=== PATIENT | male | born 1950 | race Caucasian/White ===

== ENCOUNTER → 2019-12-01 08:44 | Outpatient (CLI) | payer MEDICARE, OTHER, SELFPAY ==
--- NOTE | 2019-12-01 | DI.RAD.S_ITS ---
PROCEDURE: XR SHOULDER LT MIN 2V INDICATIONS: SHOULDER LEFT PAIN TECHNIQUE: 3 views of the shoulder were acquired. COMPARISON: None. FINDINGS: Bones: No fractures or dislocations there is moderate osteoarthritic change at the a.c. joint, left shoulder. No suspicious bony lesions. Visualized ribs appear intact. Soft tissues: No suspicious soft tissue calcifications. IMPRESSION: Moderate a.c. joint osteoarthritis. No trauma found. Dictated by: Jason Monaco M.D. on 12/01/2019 at 9:30 Approved by: Jason Monaco M.D. on 12/01/2019 at 9:31
[2019-12-01 10:39] LABS: Add Manual Diff / Slide Review NO; Basophils Absolute Auto 100 /uL (0-100); Eosinophils Absolute Auto 200 /uL (0-450); Eosinophils Percent Auto 2.7 % (2-4); Hematocrit 50.3 % (41-53); Hemoglobin 16.8 g/dL (13.5-17.5); Lymphocytes Absolute Auto 2200 /uL (1100-4500); Lymphocytes Percent Auto 31.9 % (25-40); Mean Corpuscular HGB Conc 33.3 % (30-36); Mean Corpuscular Hemoglobin 29.8 PG (26-34); Mean Corpuscular Volume 89.5 fL (80-100); Monocytes Absolute Auto 600 /uL (0-900); Monocytes Percent Auto 8.9 % (3-14); Neutrophils Absolute Auto 3800 /uL (1500-7000); Neutrophils Percent Auto 55.5 % (50-75); Platelet Count 237 X10^3/uL (150-400); Red Blood Cell Count 5.62 X10^6/uL (4.5-5.9); Red Cell Distribution Width 14.9 % (11.6-14.8); White Blood Cell Count 6.8 X10^3/uL (4.5-11.0)
[2019-12-01 11:04] LABS: Alanine Aminotransferase 27 IU/L (<50); Albumin 4.6 g/dL (3.5-5.0); Albumin Globulin Ratio 1.4 (1.0-2.8); Alkaline Phosphatase 79 U/L (38-126); Aspartate Aminotransferase 32 IU/L (17-59); BUN Creatinine Ratio 17.8 (6-22); Bilirubin Total 0.7 mg/dL (0.2-1.3); Bilirubin Unconjugated 0.7 mg/dL (0.0-1.1); Blood Urea Nitrogen 19 mg/dL (9-20); Calcium 9.5 mg/dL (8.4-10.2); Carbon Dioxide 29 mmol/L (22-32); Chloride 102 mmol/L (98-107); Cholesterol 139 mg/dL (140-199); Estimated Glomerular Filt Rate > 60.0 mL/min (>60); Globulin 3.3 g/dL (1.7-4.1); Glucose 89 mg/dL (80-110); HDL Cholesterol 34 mg/dL (40-60); HEMOLYSIS < 15 (0-50); LDL Cholesterol Calculated 66 mg/dL (<100); Potassium 4.2 mmol/L (3.4-5.1); Sodium 140 mmol/L (137-145); Total Protein 7.9 g/dL (6.3-8.2); Triglycerides 193 mg/dL (35-150); Uric Acid 6.1 mg/dL (3.5-8.5)
[2019-12-01 11:32] LABS: Prostate Specific Antigen 0.744 ng/mL (0.10-4.00)
[2019-12-01 11:33] LABS: TSH w/ Reflex to FT4 1.33 uIU/mL (0.47-4.68)
== END ==
PROVIDERS: Referring Provider Internal Medicine; Visit Provider Internal Medicine
DX: M10.9 Gout, unspecified (principal); I10 Essential (primary) hypertension; C61 Malignant neoplasm of prostate; E78.2 Mixed hyperlipidemia; M25.519 Pain in unspecified shoulder
CPT/HCPCS: 36415; 73030; 80048; 80061; 80076; 84153; 84443; 84550; 85025

== ENCOUNTER → 2020-01-10 11:25 | Outpatient (CLI) | payer MEDICARE, OTHER, SELFPAY ==
[2020-01-11 08:49] LABS: COVID19 Sendout NOT DETECTED (Not Detect)
== END ==
PROVIDERS: Visit Provider Physician Assistant
DX: Z01.818 Encounter for other preprocedural examination (principal)
CPT/HCPCS: 87635

== ENCOUNTER 2020-01-13 11:46 | Day surgery (SDC) | payer MEDICARE, OTHER, SELFPAY ==
--- NOTE | 2020-01-13 | PATH_ITS ---
[facility] Accession Number: [id number] . 01 Material submitted: . PART A: colon - IC VALVE PART B: colon - ASCENDING COLON BIOPSY . 01 Clinical history: . SCREENING COLONOSCOPY W/POSS BX A-B: R/O COLITIS VERSUS ADENOMA . 01 Diagnosis: A. Ileocecal Valve, Biopsy: Colonic mucosa with focal erosion; please see comment. Negative for granlomata, dysplasia or malignancy. . B. Ascending Colon, Biopsy: Colonic mucosa with no diagnostic abnormality. Negative for active, chronic, and microscopic colitis. Negative for dysplasia and malignancy. [facility] 01/14/2020 1520 Local . 01 Comment: The findings in the ileocecal valve biopsy are most suggestive of an acute self-limited colitis (infectious versus drug/toxin induced). . 01 Electronically signed: . David Alcaraz MD, PhD, Pathologist NPI- [id number] . 01 Gross description: . Part A: IC VALVE: Received in formalin are 2 fragment(s) of castro, soft tissue measuring 0.3 x 0.3 x 0.3 cm to 0.3 x 0.2 x 0.2 cm submitted entirely in 1 cassette(s) Part B: ASCENDING COLON BIOPSY: Received in formalin are 2 fragment(s) of castro, soft tissue measuring 0.2 x 0.2 x 0.2 cm to 0.3 x 0.2 x 0.1 cm submitted entirely in 1 cassette(s) /QBJ 01/14/2020 0104 Local . 01 Pathologist provided ICD-10: K52.9 . 01 CPT . 192899, 922673 Performed at: [address] [facility] [address], [place], [place] [id number] MD Redd Da Silva MD Phone: [phone]
[2020-01-13 12:25] VITALS: BMI 33.2
[2020-01-13] MEDS: SODIUM CHLORIDE 0.9% 1,000 ML 21 ML IV (12:39)
[2020-01-13 12:40] VITALS: BMI 33.2
--- NOTE | 2020-01-13 13:27 | PM.PREOP ---
Pre-operative Note COVID-19 COVID-19 status: Negative Interval Note History & Physical reviewed/Exam performed by Physician: Yes Changes to H&P: No ASA Class (for procedural sedation): II
--- NOTE | 2020-01-13 13:28 | PM.OP.ENDO ---
Operative Date/Time/Diagnoses Date of procedure: 01/13/20 Time of procedure: 13:28 Pre-op diagnosis: See indication and findings Procedure & Clinicians Study performed: Colonoscopy Same procedure as scheduled: Yes Indications: Rectal bleeding Surgeon: Andre Padilla Procedure Notes Procedure in detail: After informed consent was obtained the patient was placed in left lateral decubitus position. The video colonoscope was introduced the rectum slowly advanced cecum. On slow withdrawal mucosa was carefully examined. Preparation was good. Scope was removed. The patient tolerated procedure well. Blood loss none Complications none Sedation Total sedation time 23 minutes Versed 7 mg fentanyl 150 micro g IV titration Findings 1. In distinct very flat erythematous area on the IC valve approximately 12 mm in size. Nearby there was another slightly nodular area that appeared more inflammatory than neoplastic both of these were biopsied and placed in the same bottle. I suspect the most likely represent a colitis. 2. There was a somewhat nodular erythematous fold in the mid ascending colon and this was biopsied. See 1. Above 3. Extensive diverticulosis through the entire colon but particularly in the left side 4. Otherwise negative colonoscopy to cecum other than mild internal hemorrhoids Will be in touch with Lexi regarding his biopsies. His colonoscopy was actually quite difficult given multiple looping and a lengthy colon. If these turnstile attendant to be adenomatous we have to think twice about repeating his procedure for complete polypectomy although it may be possible under anesthesia.
[2020-01-13] MEDS: fentaNYL 250 MCG/5 ML INJ IV (13:35)
[2020-01-13] MEDS: MIDAZOLAM 5 MG/5 ML VIAL IV (13:35)
[2020-01-13 14:06] VITALS: BP 143/91; PULSE 56; RESP 16; TEMP 36.7; O2SAT 90
[2020-01-13 14:14] VITALS: BP 151/84; PULSE 58; RESP 15; O2SAT 94
[2020-01-13 14:23] VITALS: BP 137/87; PULSE 55; RESP 16; O2SAT 97
[2020-01-13 14:28] VITALS: BP 155/94; PULSE 48; RESP 19; O2SAT 96
--- NOTE | 2020-01-13 15:06 | SUR.PHASEII ---
took patient to ER parking lot via wheelchair to wait for . Patient stated to this nurse previously that would be taking him home. At the ER entrance, was not to be found, and patient told nurse that his van was parked in the parking lot. Patient then admits to nurse that was actually in [place]. Advised patient that the nursing staff could not allow him to drive himself home and that he would have to find alternative transportation home. Brought patient back into the recovery area of PACU and instructed patient to call for a ride home. V/U. Lead nurse aware of situation.
--- NOTE | 2020-01-13 16:39 | SUR.PHASEII ---
Late entry: JHONNY Reinoso took pt to ER entrance wedding transportation driver was no where around, pt admitted he was going to drive himself home. Pt brought back to [facility]. Dr. Padilla made aware, stated it was ok for pt to take taxi home. [employer] called, picked up pt to drive home. Pt left in stable condition.
== END 2020-01-13 15:11 | disposition home or self-care (01) ==
PROVIDERS: Referring Provider Internal Medicine Gastroenterology; Visit Provider Internal Medicine Gastroenterology
PROC: 0DJD8ZZ Inspection of Lower Intestinal Tract, Via Natural or Artificial Opening Endoscopic (ICD-10-PCS; CPT 45378; principal; 2020-01-13 14:00)
DX: K57.30 Diverticulosis of large intestine without perforation or abscess without bleeding (principal); K64.4 Residual hemorrhoidal skin tags
CPT/HCPCS: 45380; J2250; J3010

== ENCOUNTER 2020-03-17 17:52 | Emergency (ER) | payer MEDICARE, OTHER, SELFPAY ==
[2020-03-17 17:58] VITALS: BP 166/108; PULSE 85; RESP 14; TEMP 37.1; O2SAT 97; BMI 31.0
--- NOTE | 2020-03-17 18:45 | ED_ITS ---
HPI - Fall General Chief Complaint: Fall Stated Complaint: fall in shower, pain in legs now Time Seen by Provider: 03/17/20 18:25 Source: patient Mode of arrival: Ambulatory Limitations: no limitations History of Present Illness HPI Narrative: Patient is a 70-year-old male who is here for evaluation after he slipped in the shower at home landing directly down onto his buttocks. Was able to ambulate afterwards however does state that his lower back does hurt and depending on the position that he is in can get tingling down into his legs. No bowel or bladder issues since the event happened but this has only been approximately 1 hour ago. Has not tried anything for symptoms prior to arrival. No prior back issues Related Data Home Medications Medication Instructions Recorded Confirmed allopurinol 100 mg PO DAILY 01/13/20 01/13/20 alprazolam 1 mg PO BEDTIME 01/13/20 01/13/20 trazodone 50 mg PO BEDTIME 01/13/20 01/13/20 triamterene-hydrochlorothiazid 1 tab PO DAILY 01/13/20 01/13/20 Previous Rx's Medication Instructions Recorded cyclobenzaprine 10 mg PO TID PRN #12 tab 03/17/20 hydrocodone-acetaminophen [[place]] 1 tab PO Q4-6H PRN #10 tab 03/17/20 Allergies Allergy/AdvReac Type Severity Reaction Status Date / Time No Known Drug Allergies Allergy Verified 03/17/20 17:57 Review of Systems Constitutional Constitutional: Denies fever(s) ENT Ears, Nose, Mouth, and Throat: Denies vertigo and Denies dizziness Cardiovascular Cardiovascular: Denies chest pain and Denies dyspnea Respiratory Respiratory: Denies dyspnea Gastrointestinal Gastrointestinal: Denies abdominal pain, Denies nausea and Denies vomiting Genitourinary Genitourinary: Denies dysuria Genitourinary: Denies dysuria Musculoskeletal Musculoskeletal: Denies arthralgias, Reports back pain, Denies arthralgias and Reports tingling Integumentary/Breasts Skin/Breast: Denies lesions and Denies rash Neurologic Neurologic: Denies confusion, Denies vertigo, Denies dizziness and Reports tingling Psychiatric Psychiatric: Denies confusion Hematologic/Lymphatic Hematologic/Lymphatic: Denies easy bleeding and Denies easy bruising Allergic/Immunologic Allergic/Immunologic: Denies urticaria Patient History Medical History Patient denies medical problems (Acute) Social History household members: spouse Smoking Status: Never smoker alcohol intake: current Smoking Status: Never smoker alcohol intake frequency: 3 or more drinks per day Substance Use Type: does not use Exam Initial Vital Signs Initial Vital Signs: Vital Signs Temperature 98.7 F 03/17/20 17:58 Pulse Rate 85 03/17/20 17:58 Respiratory Rate 14 03/17/20 17:58 Blood Pressure 166/108 H 03/17/20 17:58 Pulse Oximetry 97 03/17/20 17:58 Const General: cooperative, comfortable and well developed Limitations: mental status not altered HENMT Head: normal to inspection and normocephalic Resp Effort & Inspection: normal respiratory effort Cardio Rate: regular rate Pulses: dorsalis pedis present bilaterally GI Inspection: non-distended Back/Spine/Pelvis Thoracic/Lumbar Spine: paraspinal tenderness (Lumbar region), No thoracic spinal tenderness and No lumbar spinal tenderness Sacroiliac Joints: nontender Skin Lesions: no lesions Rashes: no rashes Neuro General: patient alert, patient awake and patient oriented x3 Cognition: normal cognition Speech: speech normal Motor: muscle tone normal throughout Sensory Exam: no sensory deficits noted Extrem General: normal to inspection and capillary refill normal Other: Patient to do a straight leg raise bilateral lower extremities without problems Psych Appearance: grossly normal and well kempt Scores [facility] [place] coma scale eye opening: Spontaneous Aimee coma scale verbal response: Orientated Aimee coma scale motor response: Obey commands Aimee coma scale total score: 15 Course Orders Ordered: ED Orders 03/17/20 18:45 XR lumbar spine 2-3V Stat Discontinued Medications Hydrocodone Bitart/Acetaminophen ([place] 5/325) 1 tab PO NOW ONE Stop: 03/17/20 19:26 Last Admin: 03/17/20 19:33 Dose: 1 tab Documented by: SUNDEEPL Ketorolac Tromethamine (Toradol) 30 mg IM NOW ONE Stop: 03/17/20 19:26 Last Admin: 03/17/20 19:33 Dose: 30 mg Documented by: TIFFANY Vital Signs Vital signs: Vital Signs - 8 hr 03/17/20 19:49 Pulse Rate 65 Blood Pressure 154/93 H Pulse Oximetry 100 MDM - Fall Imaging Data XR lumbar: Radiologist's Impression: [address] [id number] XRay Report Signed Patient: Christopher Brown JMR#: [id number] : 1950Acct:[id number] Age/Sex: 70 / MDate of Service: 03/17/20 Loc: ED Accession Number: [id number] Procedure: XR lumbar spine 2-3V Ordering Provider: Alireza Rubalcava D.O. PROCEDURE: XR LUMBAR SPINE 2-3V INDICATIONS: fall landed on bottom now with LBP TECHNIQUE: Three views of the lumbar spine were acquired. COMPARISON: None. FINDINGS: Bones: Five [id number] vertebrae are present. Grade 1 anterolisthesis T12 on L1. Grade 1 retrolisthesis L2 on three, L3 on four, and grade 1 anterolisthesis L4 on five. No vertebral body compression fractures. Moderate to severe multilevel disc height loss throughout the lumbar spine. Anterior endplate spurring, most prominent at the L2-3 level. No suspicious bony lesions. Soft tissues: Overlying bowel gas pattern is normal. No suspicious soft tissue calcifications. IMPRESSION: 1. No visible compression fractures. 2. Multilevel spondylosis and spondylolisthesis. Dictated by: Sasha Britton M.D. on 03/17/2020 at 19:09 Approved by: Sasha Britton M.D. on 03/17/2020 at 19:11 [facility] Narrative Medical decision making narrative: He is neurologically intact. His lumbar spine x-rays unremarkable. Patient can ambulate. Given his mechanism of injury I do have some suspicion about potentially a soft tissue injury such as a herniated lumbar disc. Does appear that his tingling that he has in his legs is a positional issue. He did get some relief with a partial recumbent position. Considered etiology such as fractures however is x-rays unremarkable. Also considered other etiologies such as cauda equina however his symptoms could also be very well explain just by irritation from the fall which occurred less than 1 hour ago. He is not currently having any urologic issues. I feel that currently we should wait to see if his symptoms improve over the next several hours/days. He was given pain medication and Toradol here in the ER. Will send home with instructions for anti-inflammatories. He is also going to contact his primary doctor tomorrow to schedule follow-up appointment. We did discuss strict return precautions with regard to the above differential and others. Patient expressed understanding and agreement. Discharge Plan Departure Patient Disposition: Home Clinical Impression: Lower back pain Qualifiers: Chronicity: acute Back pain laterality: bilateral Sciatica presence: unspecified whether sciatica present Qualified Code(s): M54.5 - Low back pain Fall Qualifiers: Encounter type: initial encounter Qualified Code(s): W19.XXXA - Unspecified fa ll, initial encounter Discharge Date/Time: 03/17/20 20:04 Instructions: DI for Low Back Pain, Exercise May Reduce Risk of Low Back Pain Activity Restrictions/Additional Instructions: I recommend that you start taking a anti-inflammatories such as Motrin. Recommend that you take 600 mg 3 times a day with some food. Also recommend that you take the other medication as directed and as needed. They were electronically transmitted to [employer]. I also recommend that tomorrow you contact your primary provider for a follow-up within the next week. Had that point if your symptoms are not improved you can discuss the indications for an MRI. Return to the emergency department for the issues that we discussed. Prescriptions: New cyclobenzaprine 10 mg tablet 10 mg PO TID PRN (Reason: muscle spasm) Qty: 12 RF: 0 hydrocodone-acetaminophen [[place]] 5-325 mg tablet 1 tab PO Q4-6H PRN (Reason: pain) Qty: 10 RF: 0 No Action trazodone 50 mg Tablet 50 mg PO BEDTIME RF: 0 alprazolam 1 mg Tablet 1 mg PO BEDTIME RF: 0 allopurinol 100 mg Tablet 100 mg PO DAILY RF: 0 triamterene-hydrochlorothiazid 37.5-25 mg Tablet 1 tab PO DAILY RF: 0
[2020-03-17] MEDS: KETOROLAC 60 MG/2 ML VIAL 30 MG IM (19:33)
[2020-03-17] MEDS: HYDROCODONE/ACET 5/325 TABLET 1 TAB PO (19:33)
[2020-03-17 19:49] VITALS: BP 154/93; PULSE 65; O2SAT 100
== END 2020-03-17 20:04 | disposition home or self-care (01) ==
PROVIDERS: Emergency Provider Emergency Medicine
DX: M54.5 Low back pain (principal); W18.2XXA Fall in (into) shower or empty bathtub, initial encounter
CPT/HCPCS: 72100; 96372; 99283; J1885

== ENCOUNTER → 2020-05-21 07:59 | Outpatient (CLI) | payer MEDICARE, OTHER, SELFPAY ==
--- NOTE | 2020-05-21 | DI.MRI.S_ITS ---
PROCEDURE: MR LUMBAR SPINE WO CON INDICATIONS: Radiculopathy, lumbar region TECHNIQUE: Noncontrast sagittal T1 spin echo and T2 fast echo, sagittal STIR, axial T1 and T2 fast spin echo through the lumbar spine. In cases with scoliosis, additional coronal T2 fast spin echo may be performed. COMPARISON: [facility], CR, XR LUMBAR SPINE 2-3V, 03/17/2020, 18:51. FINDINGS: Image quality: Excellent. Alignment and Curvature: There is normal bony alignment except for moderate grade 1 anterolisthesis of L4 on L5. Bone Marrow: Marrow is of normal overall signal. No acute vertebral body compression fractures. Spinal Cord: Conus medullaris terminates at the L1 level. Visualized cord demonstrates normal signal and size. Paraspinous Soft Tissues: No paravertebral masses. L1-L2: Mild degenerative disc height reduction and desiccation. Mild facet osteoarthritis, no significant spinal or foraminal stenosis.. L2-L3: The degenerative disc disease at this level is moderately severe and there is a posterior broad-based transverse disc bulge that is greater on the right than the left and which extends into the intervertebral neural foramen producing moderately severe right sided foraminal stenosis in contrast to [id number] left-sided foraminal stenosis. Facet osteoarthritis at this level is symmetric, mild, and there is mild ligamentum flavum hypertrophy. The 3 factors present contribute to concentric spinal stenosis moderate in severity mildly crowding the nerve roots within the thecal sac. L3-L4: Degenerative disc disease at this level is near severe, with disc height reduction, disc desiccation, and with a posterior broad-based mild transverse disc bulge. Facet osteoarthritis is moderately severe at this level, with ligamentum flavum hypertrophy that appears slightly greater on the left than the right. These factors result in asymmetric foraminal stenosis right greater than left, and also concentric moderately severe to severe spinal stenosis. Nerve roots are crowded within the thecal sac with little intervening L4-L5: The degenerative disc disease at this level is near severe. Facet osteoarthritis is severe. There is anterolisthesis of L4 on L5, grade 1, but sufficient to produce severe concentric spinal stenosis and severe bilateral foraminal stenosis. A disc herniation is not associated. L5-S1: Moderately severe degenerative disc disease with disc height reduction and desiccation. There is moderate bilateral symmetric facet osteoarthritis producing mild foraminal stenosis and no significant spinal stenosis. IMPRESSION: A degenerative pattern of moderately severe to severe disc disease and facet osteoarthritis is present at multiple levels with likelihood of multilevel spinal and foraminal stenosis as noted. A free herniated disc fragment is not found. Multilevel symmetric and asymmetric nerve root impingement would be expected as detailed by level in the body of the report above. Dictated by: Jason Monaco M.D. on 05/23/2020 at 15:20 Approved by: Jason Monaco M.D. on 05/23/2020 at 15:55
== END ==
PROVIDERS: PCP Internal Medicine; Referring Provider Internal Medicine; Visit Provider Internal Medicine
DX: M51.16 Intervertebral disc disorders with radiculopathy, lumbar region (principal); M51.17 Intervertebral disc disorders with radiculopathy, lumbosacral region; M47.26 Other spondylosis with radiculopathy, lumbar region; M47.27 Other spondylosis with radiculopathy, lumbosacral region; M48.061 Spinal stenosis, lumbar region without neurogenic claudication; M48.07 Spinal stenosis, lumbosacral region
CPT/HCPCS: 72148

== ENCOUNTER 2020-06-22 12:18 | Emergency (ER) | payer MEDICARE, OTHER, SELFPAY ==
[2020-06-22 12:25] VITALS: BP 195/104; PULSE 64; RESP 15; TEMP 36.9; O2SAT 96; BMI 32.5
--- NOTE | 2020-06-22 12:34 | DI.RAD.S_ITS ---
PROCEDURE: XR CHEST 1V INDICATIONS: dizziness TECHNIQUE: One view of the chest was acquired. COMPARISON: None. FINDINGS: Surgical changes and devices: None. Lungs and pleura: Lungs are clear. No pleural effusions or pneumothorax. Elevation or eventration of right hemidiaphragm. Mediastinum: Mediastinal contours appear normal. Heart size is normal. Bones and chest wall: No suspicious bony lesions. Overlying soft tissues appear unremarkable. IMPRESSION: No evidence acute pulmonary process. Dictated by: El Jon M.D. on 06/22/2020 at 13:45 Approved by: El Jon M.D. on 06/22/2020 at 13:45
--- NOTE | 2020-06-22 12:34 | DI.CT.S_ITS ---
PROCEDURE: CT ABDOMEN PELVIS W CON INDICATIONS: sudden umbilicus pain TECHNIQUE: After the administration of intravenous contrast, 5 mm thick sections acquired from the diaphragm to the symphysis. 5 mm coronal and sagittal reformats were acquired. For radiation dose reduction, the following was used: automated exposure control, adjustment of mA and/or kV according to patient size. COMPARISON: None. FINDINGS: Image quality: Excellent. ABDOMEN: Lung bases: Lung bases are clear. Heart size is normal. Solid organs: Liver is normal in size and enhancement. Gallbladder is unremarkable. Biliary system is non dilated. Pancreas enhances normally. Spleen is normal in size and enhancement. No adrenal nodules. Kidneys demonstrate normal size and enhancement, without hydronephrosis. Peritoneum and bowel: Bowel loops demonstrate normal wall thickness and caliber. No free fluid or air. Sigmoid diverticulosis without evidence of diverticulitis. Moderately large fecal debris throughout the colon. Nodes and vessels: No retroperitoneal or mesenteric adenopathy by size criteria. Aorta and inferior vena cava are normal in size. Miscellaneous: No ventral hernias. PELVIS: Genitourinary: Bladder wall thickness is normal. Miscellaneous: Small bilateral inguinal hernias containing fat. No inguinal adenopathy. Bones: No suspicious bony lesions. No vertebral body compression fractures. Extensive lumbar degenerative change. Severe canal stenosis at L4-L5. Canal stenosis at L5-S1. IMPRESSION: 1. No evidence of acute abdominal process. 2. Moderately large fecal debris. 3. Diverticulosis without evidence of diverticulitis. 4. Incidental note made of lumbar spine degenerative change with severe canal stenosis at L4-L5. Dictated by: El Jon M.D. on 06/22/2020 at 13:42 Approved by: El Jon M.D. on 06/22/2020 at 13:45
--- NOTE | 2020-06-22 12:37 | ED_ITS ---
HPI - Abdominal Pain <BELLA Jones - Last Filed: 06/22/20 18:35> General Chief Complaint: Abdominal Pain Stated Complaint: stomach pain/issues Time Seen by Provider: 06/22/20 12:28 Source: patient Mode of arrival: Ambulatory History of Present Illness HPI narrative: 70yo male with a history of HTN, presents to the ED for umbilical abdominal pain. Patient states he was at work, he lifted something heavy and felt a sudden pain around the middle of his stomach. He states the pain continues, is unable to describe its characteristic, denies burning, tearing, ripping, or pressure. Patient states the pain was worse initially, has improved some but still continues. Patient states when he lifted up heavy object, he felt some pressure behind his eyes that lasted a few minutes. Denies any vision changes. Patient denies any chest pain, shortness of breath, chest pressure, nausea, vomiting, diarrhea, syncope, or any other concerns. Related Data Home Medications Medication Instructions Recorded Confirmed allopurinol 100 mg PO DAILY 01/13/20 01/13/20 alprazolam 1 mg PO BEDTIME 01/13/20 01/13/20 trazodone 50 mg PO BEDTIME 01/13/20 01/13/20 triamterene-hydrochlorothiazid 1 tab PO DAILY 01/13/20 01/13/20 Previous Rx's Medication Instructions Recorded cyclobenzaprine 10 mg PO TID PRN #12 tab 03/17/20 hydrocodone-acetaminophen [[place]] 1 tab PO Q4-6H PRN #10 tab 03/17/20 Allergies Allergy/AdvReac Type Severity Reaction Status Date / Time No Known Drug Allergies Allergy Verified 06/22/20 12:35 Review of Systems <BELLA Jones - Last Filed: 06/22/20 18:35> Review of Systems Narrative: REVIEW OF SYSTEMS: GENERAL: Denies fever. HENT: No head trauma. CARDIOVASCULAR: No chest pain. RESPIRATORY: No shortness of breath or cough. GASTROINTESTINAL: Complains of abdominal pain, see HPI GENITOURINARY: No flank pain. MUSCULOSKELETAL: No trauma. INTEGUMENTARY: No rash. NEURO: No numbness or tingling. Patient History <BELLA Jones - Last Filed: 06/22/20 18:35> Medical History Patient denies medical problems Social History household members: spouse Smoking Status: Never smoker alcohol intake: current Smoking Status: Never smoker alcohol intake frequency: 3 or more drinks per day Substance Use Type: does not use Exam <BELLA Jones - Last Filed: 06/22/20 18:35> Initial Vital Signs Initial Vital Signs: Vital Signs Temperature 98.4 F 06/22/20 12:25 Pulse Rate 64 06/22/20 12:25 Respiratory Rate 15 06/22/20 12:25 Blood Pressure 195/104 H 06/22/20 12:25 Pulse Oximetry 96 06/22/20 12:25 PHYSICAL EXAMINATION: GENERAL: 70-year-old male awake and alert, answers questions appropriately. HENT: Normocephalic, atraumatic. Hearing intact. Oral mucosa is pink and moist. EYES: PERRLA, Conjunctiva pink, sclera white, no periorbital swelling. CARDIOVASCULAR: S1 and S2 sounds normal. Regular rate and rhythm, no murmurs, clicks, or bruits. No pedal edema. RESPIRATORY: Normal respiratory rate, trachea midline, airway patent. No stridor, nasal flaring or accessory muscle use. Lungs are clear in all herrm[place] without wheeze, rhonchi, or crackles. GASTROINTESTINAL: Bowel sounds normoactive. Abdomen is soft, tenderness to umbilical area, no hernias palpated. No organomegaly, no palpable masses. GENITALURINARY: No flank tenderness. MUSCULOSKELETAL: Normal gait and coordination. Equal tone and mass bilaterally. EXTREMITIES: CMS intact, no pedal edema. SKIN: Warm, dry, soft, appropriate color for ethnicity. No lesions, rashes, or wounds to visualized areas. NEURO: Alert and Oriented X 3. Good coordination. No ataxia, or sensory deficits, or cognitive issues. PSYCH: Appropriate affect and mood. <Jason Mar MD - Last Filed: 06/22/20 18:56> Initial Vital Signs Initial Vital Signs: Vital Signs Temperature 98.4 F 06/22/20 12:25 Pulse Rate 64 06/22/20 12:25 Respiratory Rate 15 06/22/20 12:25 Blood Pressure 195/104 H 06/22/20 12:25 Pulse Oximetry 96 06/22/20 12:25 Course <Loraine BELLA Monroe - Last Filed: 06/22/20 18:35> Course Course Narrative: Upon re-evaluation of the patient denies any abdominal pain. He states all symptoms have resolved. Orders Ordered: ED Orders 06/22/20 12:34 CT abdomen pelvis w con Stat XR chest 1V Stat 06/22/20 12:42 Complete Blood Count AUTO DIFF Stat Comprehensive Metabolic Panel Stat Lipase Stat Troponin & CK Cardiac Panel Stat Discontinued Medications Sodium Chloride (Normal Saline 0.9%) 1,000 mls @ 1,000 mls/hr IV BOLUS ONE Stop: 06/22/20 13:33 Last Infusion: 06/22/20 14:31 Dose: 0 mls/hr Documented by: Admin: 06/22/20 13:03 Dose: 1,000 mls/hr Documented by: PETER Reevaluation(s) Reevaluation #1: Patient staffed with Dr. Mar, discussed test, test results, plan of care. Vital Signs Vital signs: Vital Signs - 8 hr 06/22/20 12:25 06/22/20 13:00 06/22/20 13:30 Temperature 98.4 F Pulse Rate 64 59 L 54 L Respiratory Rate 15 18 22 Blood Pressure 195/104 H Pulse Oximetry 96 98 97 06/22/20 14:28 Temperature Pulse Rate 60 Respiratory Rate 16 Blood Pressure 168/103 H Pulse Oximetry 98 <Jason Mar MD - Last Filed: 06/22/20 18:56> Orders Ordered: ED Orders 06/22/20 12:34 CT abdomen pelvis w con Stat XR chest 1V Stat 06/22/20 12:42 Complete Blood Count AUTO DIFF Stat Comprehensive Metabolic Panel Stat Lipase Stat Troponin & CK Cardiac Panel Stat Discontinued Medications Sodium Chloride (Normal Saline 0.9%) 1,000 mls @ 1,000 mls/hr IV BOLUS ONE Stop: 06/22/20 13:33 Last Infusion: 06/22/20 14:31 Dose: 0 mls/hr Documented by: Admin: 06/22/20 13:03 Dose: 1,000 mls/hr Documented by: PETER Vital Signs Vital signs: Vital Signs - 8 hr 06/22/20 12:25 06/22/20 13:00 06/22/20 13:30 Temperature 98.4 F Pulse Rate 64 59 L 54 L Respiratory Rate 15 18 22 Blood Pressure 195/104 H Pulse Oximetry 96 98 97 06/22/20 14:28 Temperature Pulse Rate 60 Respiratory Rate 16 Blood Pressure 168/103 H Pulse Oximetry 98 MDM - Abdominal Pain <BELLA Jones - Last Filed: 06/22/20 18:35> Medical Records Attestation: I reviewed the patient's medical records. Lab Data Attestation: I reviewed the patient's lab results. Result diagrams: 06/22/20 12:42 06/22/20 12:42 Labs: Lab Results 06/22/20 06/22/20 Range/Units 12:42 12:42 WBC 7.9 (4.5-11.0) X10^3/uL RBC 5.48 (4.5-5.9) X10^6/uL Hgb 16.4 (13.5-17.5) g/dL Hct 49.3 (41-53) % MCV 89.9 (80-100) fL MCH 29.8 (26-34) PG MCHC 33.2 (30-36) % RDW 14.4 (11.6-14.8) % Plt Count 235 (150-400) X10^3/uL Neut % (Auto) 68.2 (50-75) % Lymph % (Auto) 19.8 L (25-40) % Antelope % (Auto) 10.4 (3-14) % Eos % (Auto) 0.9 L (2-4) % Baso % (Auto) 0.7 (0-2) % Neut # (Auto) 5400 (8823-3263) /uL Lymph # (Auto) 1600 (9373-1400) /uL Antelope # (Auto) 800 (0-900) /uL Eos # (Auto) 100 (0-450) /uL Baso # (Auto) 100 (0-100) /uL Sodium 138 (137-145) mmol/L Potassium 3.9 (3.4-5.1) mmol/L Chloride 101 (98-107) mmol/L Carbon Dioxide 29 (22-32) mmol/L BUN 21 H (9-20) mg/dL Creatinine 0.96 (0.66-1.25) mg/dL Estimated GFR > 60.0 (>60) mL/min BUN/Creatinine Ratio 21.9 (6-22) Glucose 109 (80-110) mg/dL Calcium 9.5 (8.4-10.2) mg/dL Total Bilirubin 0.6 (0.2-1.3) mg/dL AST 37 (17-59) IU/L ALT 31 (<50) IU/L Alkaline Phosphatase 69 (38-126) U/L Total Creatine Kinase 94 (55-170) U/L CK-MB (CK-2) TNP CK-MB (CK-2) Rel Index TNP Troponin I < 0.012 (0.01-0.034) ng/mL Total Protein 8.1 (6.3-8.2) g/dL Albumin 4.5 (3.5-5.0) g/dL Globulin 3.6 (1.7-4.1) g/dL Albumin/Globulin Ratio 1.3 (1.0-2.8) Lipase 130 (23-300) U/L Point of care testing: Urine Dip Bedside Urine Glucose Negative Bedside Urine Bilirubin - Negative Bedside Urine Ketone - Negative Urine Specific [place] 1.010 Bedside Urine Occult Blood - Negative Bedside Urine pH 7 Bedside Urine Protein - Negative Bedside Urine Urobilinogen - Negative Bedside Urine Nitrite - Negative Bedside Urine Leukocytes - Negative Esterase Imaging Data Chest x-ray: Radiologist's Impression: [address] [id number] ReportSigned Patient: Christopher Brown R#: [id number]: 1950Acct:[id number]/Sex: 70 / MDate of Service: 06/22/20Loc: EDAccession Number: [id number] Procedure: XR chest 1V Ordering Provider: Loraine Monroe PROCEDURE: XR CHEST 1V INDICATIONS: dizziness TECHNIQUE: One view of the chest was acquired. COMPARISON: None. FINDINGS: Surgical changes and devices: None. Lungs and pleura: Lungs are clear. No pleural effusions or pneumothorax. Elevation or eventration of right hemidiaphragm. Mediastinum: Mediastinal contours appear normal. Heart size is normal. Bones and chest wall: No suspicious bony lesions. Overlying soft tissues appear unremarkable. IMPRESSION: No evidence acute pulmonary process. Dictated by: El Jon M.D. on 06/22/2020 at 13:45 Approved by: El Jon M.D. on 06/22/2020 at 13:45 CT scan - abdomen/pelvis: Radiologist's Impression: [address] [id number] Scan ReportSigned Patient: Christopher Brown JMR#: [id number]: 1950Acct:[id number]/Sex: 70 / MDate of Service: 06/22/20Loc: EDAccession Number: [id number] Procedure: CT abdomen pelvis w con Ordering Provider: Loraine Monroe PROCEDURE: CT ABDOMEN PELVIS W CON INDICATIONS: sudden umbilicus pain TECHNIQUE: After the administration of intravenous contrast, 5 mm thick sections acquired from the diaphragm to the symphysis. 5 mm coronal and sagittal reformats were acquired. For radiation dose reduction, the following was used: automated exposure control, adjustment of mA and/or kV according to patient size. COMPARISON: None. FINDINGS: Image quality: Excellent. ABDOMEN: Lung bases: Lung bases are clear. Heart size is normal. Solid organs: Liver is normal in size and enhancement. Gallbladder is unremarkable. Biliary system is non dilated. Pancreas enhances normally. Spleen is normal in size and enhancement. No adrenal nodules. Kidneys demonstrate normal size and enhancement, without hydronephrosis. Peritoneum and bowel: Bowel loops demonstrate normal wall thickness and caliber. No free fluid or air. Sigmoid diverticulosis without evidence of diverticulitis. Moderately large fecal debris throughout the colon. Nodes and vessels: No retroperitoneal or mesenteric adenopathy by size c riteria. Aorta and inferior vena cava are normal in size. Miscellaneous: No ventral hernias. PELVIS: Genitourinary: Bladder wall thickness is normal. Miscellaneous: Small bilateral inguinal hernias containing fat. No inguinal adenopathy. Bones: No suspicious bony lesions. No vertebral body compression fractures. Extensive lumbar degenerative change. Severe canal stenosis at L4-L5. Canal stenosis at L5-S1. IMPRESSION: 1. No evidence of acute abdominal process. 2. Moderately large fecal debris. 3. Diverticulosis without evidence of diverticulitis. 4. Incidental note made of lumbar spine degenerative change with severe canal stenosis at L4-L5. Dictated by: El Jon M.D. on 06/22/2020 at 13:42 Approved by: El Jon M.D. on 06/22/2020 at 13:45 ECG Data Interpretation: 1237: Sinus rhythm, rate 58, ID interval 234, QTC 398. No ST elevation or ST depression. T-wave inversion noted in V1. No ectopy. EKG also viewed by Dr. Mar per protocol. MDM Narrative Medical decision making narrative: 70-year-old male presenting to the emergency department for stomach pain after lifting a heavy object. I suspect patient's pain is most likely caused by a muscle strain given pain occurred while lifting something heavy and fully resolved later. Less likely acute abdominal infection given negative CT, no fever, patient is hemodynamically stable without tachycardia, and laboratory work within normal limits. Patient is not vomiting, no diarrhea. Less concern for cardiac etiology given negative chest x-ray, negative troponin, lack of chest pain or other concerning symptoms such as shortness of breath. Less concern for stroke given lack of neurological findings or complaints, no weakness, vision changes, ataxia. Patient did note some pressure behind his eyes, exam benign. He states this only happened when he lifted something heavy, this may be due to vasovagal. Less concern for intracranial etiology given complete lack of symptoms including headache. No trauma to the head. He was encouraged to follow up with PCP given high blood pressure. Patient agreed to plan of care verbalized understanding. <Jason Mar MD - Last Filed: 06/22/20 18:56> Lab Data Labs: Lab Results 06/22/20 06/22/20 Range/Units 12:42 12:42 WBC 7.9 (4.5-11.0) X10^3/uL RBC 5.48 (4.5-5.9) X10^6/uL Hgb 16.4 (13.5-17.5) g/dL Hct 49.3 (41-53) % MCV 89.9 (80-100) fL MCH 29.8 (26-34) PG MCHC 33.2 (30-36) % RDW 14.4 (11.6-14.8) % Plt Count 235 (150-400) X10^3/uL Neut % (Auto) 68.2 (50-75) % Lymph % (Auto) 19.8 L (25-40) % Antelope % (Auto) 10.4 (3-14) % Eos % (Auto) 0.9 L (2-4) % Baso % (Auto) 0.7 (0-2) % Neut # (Auto) 5400 (9942-9538) /uL Lymph # (Auto) 1600 (4461-4617) /uL Antelope # (Auto) 800 (0-900) /uL Eos # (Auto) 100 (0-450) /uL Baso # (Auto) 100 (0-100) /uL Sodium 138 (137-145) mmol/L Potassium 3.9 (3.4-5.1) mmol/L Chloride 101 (98-107) mmol/L Carbon Dioxide 29 (22-32) mmol/L BUN 21 H (9-20) mg/dL Creatinine 0.96 (0.66-1.25) mg/dL Estimated GFR > 60.0 (>60) mL/min BUN/Creatinine Ratio 21.9 (6-22) Glucose 109 (80-110) mg/dL Calcium 9.5 (8.4-10.2) mg/dL Total Bilirubin 0.6 (0.2-1.3) mg/dL AST 37 (17-59) IU/L ALT 31 (<50) IU/L Alkaline Phosphatase 69 (38-126) U/L Total Creatine Kinase 94 (55-170) U/L CK-MB (CK-2) TNP CK-MB (CK-2) Rel Index TNP Troponin I < 0.012 (0.01-0.034) ng/mL Total Protein 8.1 (6.3-8.2) g/dL Albumin 4.5 (3.5-5.0) g/dL Globulin 3.6 (1.7-4.1) g/dL Albumin/Globulin Ratio 1.3 (1.0-2.8) Lipase 130 (23-300) U/L Point of care testing: Urine Dip Bedside Urine Glucose Negative Bedside Urine Bilirubin - Negative Bedside Urine Ketone - Negative Urine Specific [place] 1.010 Bedside Urine Occult Blood - Negative Bedside Urine pH 7 Bedside Urine Protein - Negative Bedside Urine Urobilinogen - Negative Bedside Urine Nitrite - Negative Bedside Urine Leukocytes - Negative Esterase Discharge Plan Departure Patient Disposition: Home Clinical Impression: Abdominal pain Qualifiers: Abdominal location: unspecified location Qualified Code(s): R10.9 - Unspecified abdominal pain Instructions: DI for Abdominal Pain-Adult, DI for Abdominal Muscle Strain Activity Restrictions/Additional Instructions: Thank you for entrusting me with your care today. As discussed, your urinalysis, laboratory work, abdominal CT, chest x-ray, and EKG are non-remarkable. I am unsure the exact cause of your abdominal pain, it may be related to a muscle u sed while lifting. I suggest following up with your primary care provider in the next 1-2 weeks for further evaluation especially if symptoms continue. Return emergency department for any new or worsening symptoms especially chest pain, vision changes, worsening pain, or any other concerns. Prescriptions: No Action cyclobenzaprine 10 mg tablet 10 mg PO TID PRN (Reason: muscle spasm) Qty: 12 RF: 0 hydrocodone-acetaminophen [[place]] 5-325 mg tablet 1 tab PO Q4-6H PRN (Reason: pain) Qty: 10 RF: 0 trazodone 50 mg Tablet 50 mg PO BEDTIME RF: 0 alprazolam 1 mg Tablet 1 mg PO BEDTIME RF: 0 allopurinol 100 mg Tablet 100 mg PO DAILY RF: 0 triamterene-hydrochlorothiazid 37.5-25 mg Tablet 1 tab PO DAILY RF: 0 Referrals: Armand Neves MD [Primary Care Provider] -
--- NOTE | 2020-06-22 12:46 | PC.NURSE ---
bp left arm 195/104 bp right arm 191/105
[2020-06-22 12:49] LABS: Add Manual Diff / Slide Review NO; Basophils Absolute Auto 100 /uL (0-100); Basophils Percent Auto 0.7 % (0-2); Eosinophils Absolute Auto 100 /uL (0-450); Eosinophils Percent Auto 0.9 % (2-4); Hematocrit 49.3 % (41-53); Hemoglobin 16.4 g/dL (13.5-17.5); Lymphocytes Absolute Auto 1600 /uL (1100-4500); Lymphocytes Percent Auto 19.8 % (25-40); Mean Corpuscular HGB Conc 33.2 % (30-36); Mean Corpuscular Hemoglobin 29.8 PG (26-34); Mean Corpuscular Volume 89.9 fL (80-100); Monocytes Absolute Auto 800 /uL (0-900); Monocytes Percent Auto 10.4 % (3-14); Neutrophils Absolute Auto 5400 /uL (1500-7000); Neutrophils Percent Auto 68.2 % (50-75); Platelet Count 235 X10^3/uL (150-400); Red Blood Cell Count 5.48 X10^6/uL (4.5-5.9); Red Cell Distribution Width 14.4 % (11.6-14.8); White Blood Cell Count 7.9 X10^3/uL (4.5-11.0)
[2020-06-22 13:00] VITALS: PULSE 59; RESP 18; O2SAT 98
[2020-06-22] MEDS: SODIUM CHLORIDE 0.9% 1,000 ML 1000 ML IV (13:03)
[2020-06-22 13:04] LABS: Alanine Aminotransferase 31 IU/L (<50); Albumin 4.5 g/dL (3.5-5.0); Albumin Globulin Ratio 1.3 (1.0-2.8); Alkaline Phosphatase 69 U/L (38-126); Aspartate Aminotransferase 37 IU/L (17-59); BUN Creatinine Ratio 21.9 (6-22); Bilirubin Total 0.6 mg/dL (0.2-1.3); Blood Urea Nitrogen 21 mg/dL (9-20); Calcium 9.5 mg/dL (8.4-10.2); Carbon Dioxide 29 mmol/L (22-32); Chloride 101 mmol/L (98-107); Creatine Kinase 94 U/L (55-170); Estimated Glomerular Filt Rate > 60.0 mL/min (>60); Globulin 3.6 g/dL (1.7-4.1); Glucose 109 mg/dL (80-110); Lipase 130 U/L (23-300); Potassium 3.9 mmol/L (3.4-5.1); Sodium 138 mmol/L (137-145); Total Protein 8.1 g/dL (6.3-8.2)
[2020-06-22 13:05] LABS: HEMOLYSIS 52 (0-50)
[2020-06-22 13:16] LABS: Troponin I < 0.012 ng/mL (0.01-0.034)
[2020-06-22 13:30] VITALS: PULSE 54; RESP 22; O2SAT 97
[2020-06-22 14:28] VITALS: BP 168/103; PULSE 60; RESP 16; O2SAT 98
== END 2020-06-22 14:31 | disposition home or self-care (01) ==
PROVIDERS: Emergency Provider Nurse Practitioner; PCP Internal Medicine
DX: R10.33 Periumbilical pain (principal); I10 Essential (primary) hypertension; R42 Dizziness and giddiness
CPT/HCPCS: 36415; 71045; 74177; 80053; 81003; 82550; 83690; 84484; 85025; 93005; 96360; 99284